=== PATIENT | female | born 1985 | race Two or more races ===

== ENCOUNTER 2021-06-06 04:54 | Inpatient (IN) | payer OTHER ==
[~2021-06-06] VITALS: Ht 152.4 cm; Wt 3.6 kg
[2021-06-06] MEDS ORDERED: PRENATAL CAPLE1 EAC1 PO (13:28)
== END 2021-06-08 15:45 | disposition home or self-care (01) | DRG 785 ==
LOC: LDR 04:54 → OB/GYN 06-07 01:38
PROVIDERS: ADMIT Obstetrics & Gynecology; ATTEND Obstetrics & Gynecology
PROC: 0UB70ZZ Excision of Bilateral Fallopian Tubes, Open Approach (ICD-10-PCS; 2021-06-06)
PROC: 3E033VJ Introduction of Other Hormone into Peripheral Vein, Percutaneous Approach (ICD-10-PCS; 2021-06-06)
PROC: 4A1HXFZ Monitoring of Products of Conception, Cardiac Rhythm, External Approach (ICD-10-PCS; 2021-06-06)
PROC: 10D00Z1 Extraction of Products of Conception, Low, Open Approach (ICD-10-PCS; principal; 2021-06-06 20:00)
DX: O62.1 Secondary uterine inertia (principal); O61.0 Failed medical induction of labor; Z30.2 Encounter for sterilization; Z37.0 Single live birth; Z3A.39 39 weeks gestation of pregnancy